=== PATIENT | female | born 1995 | race Caucasian/White ===

== ENCOUNTER 2019-10-13 07:00 | Outpatient (CLI) | payer OTHER ==
[2019-10-13 21:21] LABS: TRICHOMONAS VAGINALIS DNA NEGATIVE (NEGATIVE)
== END 2019-10-13 23:59 | disposition home or self-care (01) ==
LOC: LAB.R 07:00
PROVIDERS: ATTEND Obstetrics & Gynecology
DX: Z36.85 Encounter for antenatal screening for Streptococcus B (principal)
CPT/HCPCS: 87491; 87591; 87661; 87797

== ENCOUNTER 2019-11-04 00:55 | Inpatient (IN) | payer OTHER ==
[2019-11-04] MEDS ORDERED: LACTATED RINGERS 1,000 ML IV ONE (01:47)
[2019-11-04] MEDS ORDERED: fentaNYL 100 MCG/2 ML VIAL IVP PRN (02:19)
[2019-11-04] MEDS ORDERED: ONDANSETRON 4 MG/2 ML VIAL IVP PRN ×2 (02:19→04:45)
[2019-11-04] MEDS ORDERED: SODIUM CHLORIDE FLUSH 0.9% 10 ML SYRINGE IVP PRN (02:19)
--- NOTE | 2019-11-04 02:27 | HISTORY & PHYSICAL EXAMINATION ---
Admit History - Visit Reason Visit Reason: Contractions (24yo GBS neg O+ at 39 4/7 weeks by LMP c/w first trimester US presents with contractions for the past few hours. No bleeding or leak of fluid, normal activity. No n/v/f/c or dysuria.) - : 2 Parity: 1 Premature: 0 Ectopic: 0 : 0 Care: positive: [facility] Risk/History: positive: Pre-eclampsia, Other (Macrosomia, clavicle fracture during delivery) Complications This : positive: None Smoking Status: Never smoker - Mother's Labs Mother's Blood Type: positive: O Mother's RH: positive: Positive GBS: positive: Group B Step Negative Rubella Status: positive: Immune (HIV/RPR/HepB, C/neg GC/chlam neg Varicela immune PAP nml Glucola 131 Given Tdap) Meds/Allgy - Home Medications Home Medications: Ambulatory Orders Medication Instructions Recorded Confirmed Vit,Calc76/Iron/Folic 1 tab PO DAILY 11/04/19 11/04/19 [Pnv 29-1 Tablet] - Allergies Allergies/Adverse Reactions: Allergies Allergy/AdvReac Type Severity Reaction Status Date / Time No Known Drug Allergies Allergy Verified 11/04/19 01:24 Review of Systems - All Other Systems All Other Systems: reports: Other (As noted above) Physical - Abdominal Exam Vital Signs: Temp Pulse Resp BP Pulse Ox 98.2 F 75 18 125/87 H 100 11/04/19 01:14 11/04/19 01:14 11/04/19 01:14 11/04/19 01:14 11/04/19 01:14 Contraction Frequency (min/apart): q3-4 Contraction Intensity: positive: Mild to moderate Uterine Resting Tone: positive: Soft - Monitoring Strip Review: positive: Category I - Presentation Presentation: positive: Vertex (By bedside scan) - Vaginal Exam Membranes: positive: Membranes intact Dilation (in cm): 4cm per RN exam Effacement (%): 90% Station: positive: -1 Cervical Position: positive: Midposition Plan for Labor - Plan For Labor Plan for Labor: 24yo at 39 4/7 weeks presents in prodromal labor. GBS neg, O+ so far uncomplicated. H/O IOL secondary to preeclampsia, macrosomic baby (4167gm) with clavicle fx at delivery. She feels this baby is smaller. EFW 3800gm Planning epidural Check CBC, T&S Expect Exam - Exam Vital Signs: Vital Signs (72 hours) 11/04/19 01:14 Temperature 98.2 F Heart Rate [ 75 Monitoring electrodes] Respiratory 18 Rate Blood Pressure 125/87 H [Left Brachial artery] O2 Saturation 100 General: Alert, Oriented x3, Cooperative Lungs: Clear to auscultation Cardiovascular: Regular rate (3/6 murmur along LSB) Abdomen: Soft (Gravid S=D), No tenderness Skin: No rashes Neurological: Normal gait Psych/Mental Status: Mental status NL
[2019-11-04] MEDS ORDERED: OXYTOCIN/SODIUM CHLORIDE 500 ML IV SCH (03:00)
[2019-11-04 03:14] LABS: BASOPHILS % (AUTO) 0.3 %; EOSINOPHILS # (AUTO) 0.3 10^3/uL (0.0-0.7); EOSINOPHILS % (AUTO) 1.9 %; HGB - HEMOGLOBIN 13.4 g/dL (12.0-16.0); LYMPHOCYTES # (AUTO) 2.9 10^3/uL (1.5-3.5); LYMPHOCYTES % (AUTO) 18.4 %; MEAN CORPUSCULAR HEMOGLOBIN 28.3 pg (27.0-31.0); MEAN CORPUSCULAR HGB CONC 32.9 g/dL (32.0-36.0); MONOCYTES # (AUTO) 0.9 10^3/uL (0.0-1.0); NEUTROPHILS # (AUTO) 11.3 10^3/uL (1.5-6.6); NEUTROPHILS % (AUTO) 72.6 %; PLT - PLATELET COUNT 233 10^3/uL (130-450); RED BLOOD COUNT 4.73 10^6/uL (4.20-5.40); RED CELL DISTRIBUTION WIDTH 12.7 % (12.0-15.0); WHITE BLOOD COUNT 15.6 x10^3/uL (4.8-10.8)
[2019-11-04] MEDS ORDERED: ROPIVACAINE 0.2% 200 MG/100 ML BAG EP ONE (03:27)
[2019-11-04] MEDS: LACTATED RINGERS 1,000 ML IV SCH ×2 (03:58→07:14)
[2019-11-04] MEDS ORDERED: LACTATED RINGERS 500 ML IV ONE (04:45)
[2019-11-04] MEDS ORDERED: ePHEDrine 50 MG/ML VIAL IVP PRN (04:45)
[2019-11-04] MEDS ORDERED: diphenhydrAMINE INJ 50 MG/ML VIAL IVP PRN (04:45)
[2019-11-04] MEDS ORDERED: METOCLOPRAMIDE 10 MG/2 ML VIAL IVP PRN (04:45)
[2019-11-04] MEDS ORDERED: ROPIVACAINE 0.2% 200 MG/100 ML BAG EP PRN (04:45)
[2019-11-04] MEDS ORDERED: NALBUPHINE 10 MG/ML AMP IVP PRN (04:45)
[2019-11-04] MEDS ORDERED: NALOXONE 0.4 MG/ML VIAL IVP PRN (04:45)
--- NOTE | 2019-11-04 04:45 | ANESTHESIA ---
Pre-Anesthesia VS, & Labs - Diagnosis labor - Procedure labor epidural Vital Signs: Temp Pulse Resp BP Pulse Ox 36.8 C 94 18 112/70 100 11/04/19 01:14 11/04/19 02:42 11/04/19 02:42 11/04/19 02:42 11/04/19 02:42 Height 5 ft 1 in Weight (kg) 63.503 kg - Is Patient ?: Yes - Lab Results Current Lab Results: Laboratory Tests 11/04/19 03:30: Blood Type O POSITIVE, Antibody Screen NEGATIVE 11/04/19 02:55: Blood Type Recheck O POSITIVE 11/04/19 02:55: WBC 15.6 H, RBC 4.73, Hgb 13.4, Hct 40.7, MCV 86.0, MCH 28.3, MCHC 32.9, RDW 12.7, Plt Count 233, MPV 12.0 H, Neut # (Auto) 11.3 H, Lymph # (Auto) 2.9, [place] # (Auto) 0.9, Eos # (Auto) 0.3, Baso # (Auto) 0.0, Absolute Nucleated RBC 0.00, Nucleated RBC % 0.0 Fish Bones: 11/04/19 02:55 Home Medications and Allergies Home Medications: Ambulatory Orders Vit,Calc76/Iron/Folic [Pnv 29-1 Tablet] 1 tab PO DAILY 11/04/19 Active Medications Acetaminophen (Tylenol) 650 mg PO Q6H PRN PRN Reason: PAIN Fentanyl (Fentanyl) 50 mcg IVP Q1H PRN PRN Reason: PAIN Lactated Ringer's (Lr) 1,000 mls @ 250 mls/hr IV .Q4H RASHID Last Admin: 11/04/19 03:58 Dose: 250 mls/hr Oxytocin/Sodium Chloride (Pitocin/Sodium Chloride) 500 mls @ 1 mls/hr IV TITR RASHID; Protocol Ondansetron HCl (Zofran Inj) 4 mg IVP Q4H PRN PRN Reason: Nausea / Vomiting Sodium Chloride (Normal Saline Flush 0.9%) 10 ml IVP PRN PRN PRN Reason: NEEDED PER PROVIDER ORDERS Last Admin: 11/04/19 03:31 Dose: 10 ml Sodium Chloride (Normal Saline Flush 0.9%) 10 ml IVP 0100,0900,1700 [facility] Vit,Calc76/Iron/Folic [Pnv 29-1 Tablet] 1 tab PO DAILY 11/04/19 Allergies/Adverse Reactions: Allergies Allergy/AdvReac Type Severity Reaction Status Date / Time No Known Drug Allergies Allergy Verified 11/04/19 01:24 Anes History & Medical History - Anesthetic History Anesthesia Complications: reports: No previous complications Family history of Anesthesia Complications: Denies Family history of Malignant Hyperthermia: Denies - Medical History Cardiovascular: reports: None Pulmonary: reports: None Smoking Status: Never smoker - Obstetrical History : 2 Parity: 1 Events: positive: Pre-eclampsia, Other (Macrosomia, clavicle fracture during delivery) Complications: positive: None Exam General: Alert, Oriented x3, Cooperative Dental: WNL Mouth Opening: Greater than 4 Fingerbreadths Neck Mobility: Normal Mallampati classification: II Thyromental Distance: 4-6 cm Respiratory: Lungs clear Cardiovascular: Regular rate Plan Anesthesia Type: Epidural Consent for Procedure(s) Verified and Reviewed: Yes Code Status: Attempt Resuscitation ASA classification: 2-Mild systemic disease Is this case an emergency?: No
--- NOTE | 2019-11-04 06:42 | PROVIDER PROGRESS NOTE ---
Subjective - Prog Note Date Prog Note Date: 11/04/19 Prog Note Time: 06:40 - Subjective Subjective: Comfortable with epidural. VSS afeb Category 1 tracing Contractions q2-4 VE/ BBOW>AROM clear. Rim of cervix/+1 Str cath for 100cc concentrated urine. Doing well. Will give bolus Expect Objective - Vital Signs/Intake & Output Vital Signs: Vital Signs x48h Temp Pulse Resp BP BP Pulse Ox 11/04/19 02:42 94 18 112/70 100 11/04/19 01:14 98.2 F 75 18 125/87 H 100 Intake & Output: Intake & Output 11/01/19 11/02/19 11/03/19 11/04/19 23:59 23:59 23:59 23:59 Intake Total 1000 Balance 1000 - Lab Results Fish Bones: 11/04/19 02:55 Other Labs: Lab Results x24hrs 11/04/19 11/04/19 11/04/19 Range/Units 03:30 02:55 02:55 WBC 15.6 H (4.8-10.8) x10^3/uL RBC 4.73 (4.20-5.40) 10^6/uL Hgb 13.4 (12.0-16.0) g/dL Hct 40.7 (37.0-47.0) % MCV 86.0 (81.0-99.0) fL MCH 28.3 (27.0-31.0) pg MCHC 32.9 (32.0-36.0) g/dL RDW 12.7 (12.0-15.0) % Plt Count 233 (130-450) 10^3/uL MPV 12.0 H (7.9-10.8) fL Neut # (Auto) 11.3 H (1.5-6.6) 10^3/uL Lymph # (Auto) 2.9 (1.5-3.5) 10^3/uL [place] # (Auto) 0.9 (0.0-1.0) 10^3/uL Eos # (Auto) 0.3 (0.0-0.7) 10^3/uL Baso # (Auto) 0.0 (0.0-0.1) 10^3/uL Absolute Nucleated RBC 0.00 x10^3/uL Nucleated RBC % 0.0 /100WBC Blood Type O POSITIVE Blood Type Recheck O POSITIVE Antibody Screen NEGATIVE
[2019-11-04] MEDS ORDERED: LIDOCAINE-MPF 1% 30 ML VIAL ONE (06:57)
[2019-11-04] MEDS ORDERED: OXYTOCIN/SODIUM CHLORIDE 500 ML IV PRN (07:02)
[2019-11-04] MEDS ORDERED: HYDROcod/ACETAM 5/325 MG TABLET PO PRN (07:34)
[2019-11-04] MEDS ORDERED: HYDROCORTISONE 1% CREAM 28 GM TUBE PR PRN (07:34)
[2019-11-04] MEDS ORDERED: WITCH HAZEL/GLYCERIN 1 PAD TOP PRN (07:34)
--- NOTE | 2019-11-04 07:40 | DELIVERY NOTE ---
Delivery Note - Labor Labor: positive: Spontaneous - Delivery Method Delivery Method: positive: Spontaneous vaginal delivery - Presentation Presentation: positive: Vertex, RONN - right occiput anterior - Nuchal Cord Nuchal Cord: positive: Present (Loose x1 reduced) - Anesthetic Anesthetic Type: - Amniotic Fluid Description Amniotic Fluid Description: positive: Clear - Laceration Laceration: positive: 1st degree - Suture Suture Type: positive: Vicryl Suture Size: positive: 3-0 - Delivery Outcome Delivery Outcome: positive: Livebirth - : positive: Placed in direct skin contact with mother, Suctioned, Stimulated, Warmed [place] sex: positive: Female - Cord Cord: positive: 3 vessels - Placenta Placenta: positive: Intact, Spontaneous - Estimated Blood Loss Estimated Blood Loss (in cc): 250 - Post Delivery Events Post Delivery Events: positive: No post delivery events - Delivery Comments (Free Text/Narrative) Delivery Comments (Free Text/Narrative): of 3863gm female infant apgars 7/9 at 0701 from RONN. Cry with stimulation. Nuchal cord x1 reduced Placenta delivered intact with traction. Intact with normally inserted 3 vessel cord. Intact cervix, rectum, perineum. Small first degree laceration repaired with 3-0 vicryl rapide. EBL 250cc. Counts correct. I performed the entire procedure.
[2019-11-04] MEDS: ACETAMINOPHEN 325 MG TABLET PO PRN ×2 (08:06→23:38)
[2019-11-04] MEDS: IBUPROFEN 600 MG TABLET PO PRN (08:46)
[2019-11-04] MEDS ORDERED: SODIUM CHLORIDE FLUSH 0.9% 10 ML SYRINGE IVP SCH (09:00)
--- NOTE | 2019-11-04 12:05 | PROVIDER PROGRESS NOTE ---
Subjective - Prog Note Date Prog Note Date: 11/04/19 Prog Note Time: 12:04 - Subjective Subjective: Feeling well . Normal lochia. Ambulating, voiding, jamey reg diet. VSS afeb Abd soft, non-tender. Fundus firm below umbilicus. A/P Stable. Continue routine care. Expect DC home tomorrow. Objective - Vital Signs/Intake & Output Vital Signs: Vital Signs x48h Temp 11/04/19 09:19 97.7 F Intake & Output: Intake & Output 11/01/19 11/02/19 11/03/19 11/04/19 23:59 23:59 23:59 23:59 Intake Total 1816.667 Output Total 600 Balance 1216.667 - Lab Results Fish Bones: 11/04/19 02:55 Other Labs: Lab Results x24hrs 11/04/19 11/04/19 11/04/19 Range/Units 03:30 02:55 02:55 WBC 15.6 H (4.8-10.8) x10^3/uL RBC 4.73 (4.20-5.40) 10^6/uL Hgb 13.4 (12.0-16.0) g/dL Hct 40.7 (37.0-47.0) % MCV 86.0 (81.0-99.0) fL MCH 28.3 (27.0-31.0) pg MCHC 32.9 (32.0-36.0) g/dL RDW 12.7 (12.0-15.0) % Plt Count 233 (130-450) 10^3/uL MPV 12.0 H (7.9-10.8) fL Neut # (Auto) 11.3 H (1.5-6.6) 10^3/uL Lymph # (Auto) 2.9 (1.5-3.5) 10^3/uL [place] # (Auto) 0.9 (0.0-1.0) 10^3/uL Eos # (Auto) 0.3 (0.0-0.7) 10^3/uL Baso # (Auto) 0.0 (0.0-0.1) 10^3/uL Absolute Nucleated RBC 0.00 x10^3/uL Nucleated RBC % 0.0 /100WBC Blood Type O POSITIVE Blood Type Recheck O POSITIVE Antibody Screen NEGATIVE
--- NOTE | 2019-11-05 08:07 | PROVIDER PROGRESS NOTE ---
Subjective - Prog Note Date Prog Note Date: 11/05/19 Prog Note Time: 08:05 - Subjective Subjective: PPD 1 Feeling well. Ambulating, jamey reg diet. Minimal lochia. going well. Planning IUD; likely Mirena, in 6 weeks. VSS afeb Abd soft, non-tender. Fundus firm at umbilicus A/P Stable. Continue routine care. Expect DC home today. Objective - Vital Signs/Intake & Output Vital Signs: Vital Signs x48h Pulse Resp BP Pulse Ox 11/05/19 02:00 96 16 118/75 98 Intake & Output: Intake & Output 11/02/19 11/03/19 11/04/19 11/05/19 23:59 23:59 23:59 23:59 Intake Total 1816.667 Output Total 600 Balance 1216.667 - Lab Results Fish Bones: 11/04/19 02:55
--- NOTE | 2019-11-05 08:10 | DISCHARGE SUMMARY ---
"Discharge Summary Admit Date: 11/04/19 Discharge Date: 11/05/19 Discharging Provider: Nikki Marques MD Code Status: Attempt Resuscitation Condition at Discharge: Good Discharge Disposition: 01 Home, Self Care - DIAGNOSES Admission Diagnoses: at 39 4/7 weeks Early labor - HPI History of Present Illness: 24yo now P2 GBS neg O+ at 39 4/7 weeks by LMP c/w first trimester US presented with contractions for the preceding few hours. No bleeding or leak of fluid, normal activity. No n/v/f/c or dysuria. - CONSULTS | PROCEDURES Procedures: Repair first degree laceration - HOSPITAL COURSE Hospital Course: Pt progressed in labor, an epidural was placed and she was deliverred of a 3863gm female infant apgars 7/9 on 11/03. A small first degree laceration was repaired. EBL 250cc. Her course was uncomplicated and she was DC'd home on PPD 1. She is planning Mirena in 6 weeks for contraception. - ALLERGIES Allergies/Adverse Reactions: Allergies Allergy/AdvReac Type Severity Reaction Status Date / Time No Known Drug Allergies Allergy Verified 11/04/19 01:24 - MEDICATIONS Home Medications: Ambulatory Orders Medication Instructions Recorded Confirmed Vit,Calc76/Iron/Folic 1 tab PO DAILY 11/04/19 11/04/19 [Pnv 29-1 Tablet] - PHYSICAL EXAM AT DISCHARGE General Appearance: positive: No acute distress, Alert Respiratory: positive: No respiratory distress Abdomen: positive: Non-tender, No distention (Fundus firm at umbilicus) Extremities: positive: No pedal edema - LABS Result Diagrams: 11/04/19 02:55 - FOLLOW UP Follow Up[facility]."
--- NOTE | 2019-11-05 08:18 | Discharge Plan ---
Discharge Plan Problem Reviewed?: Yes Disposition: Home, Self Care Condition: Good Diet: Regular Activity Restrictions: Pelvic rest Shower Restrictions: No Driving Restrictions: No Weight Bearing: Full Weight No Smoking: If you smoke, Please STOP! Call for help.
[2019-11-05] MEDS: IBUPROFEN 600 MG TABLET PO PRN (08:32)
[2019-11-05] MEDS: ACETAMINOPHEN 325 MG TABLET PO PRN (08:32)
[2019-11-05 09:14] VITALS: BP 109/63
--- NOTE | 2019-11-05 12:40 | Labor Flowsheet ---
Labor Flowsheet Datetime Report Generated by CPN: 11/05/2019 12:40 Datetime: 11/05/2019 08:34 VITAL SIGNS NBP Sys/Lilli/Mean (mmHg): 109 : 63 : 73 Pulse: 72 LaborFlag: Labor Datetime: 11/04/2019 15:59 SpO2 (%): 100 Datetime: 11/04/2019 08:08 Membranes Ruptured Date/Time: 11/04/2019 06:29 Datetime: 11/04/2019 06:58 UTERINE ACTIVITY Monitor Mode: External Frequency (min): 2-3 Quality: Strong Duration (sec): 80-120 Pattern: Normal: <= 5 Contractions in 10 Minutes Resting Tone (Palpate): Relaxed ASSESSMENT A Monitor Mode: External US FHR Baseline Rate : 145 Variability: Moderate 6-25 bpm Accelerations: 15X15 Decelerations: Variable Category: Category II Datetime: 11/04/2019 06:35 I/O Interventions: Straight Cath (ml) @ 100 (Annotations: Performed by Dr. Marques) Datetime: 11/04/2019 06:29 Membrane Status: Ruptured Membranes Rupture Method: Artificial Amniotic Fluid Color: Clear Amniotic Fluid Amount: Moderate Amniotic Fluid Odor: Normal Membrane Comments: AROM performed by Dr. Marques Datetime: 11/04/2019 06:25 Provider Reviewed Strip: Yes COMMUNICATION Communication: Provider at Bedside Provider Notified (Name): Dr. Erber Notification Reason: Status Update; Pain Datetime: 11/04/2019 06:20 PATIENT CARE Patient Position/Activity: Right Lateral (Annotations: peanut ball in place) Datetime: 11/04/2019 06:00 Actions for Decelerations: Side to Side Datetime: 11/04/2019 05:59 Patient Care Comments: pt awake. c/o pressure Datetime: 11/04/2019 05:15 Contraction Comments: pt sleeping through them Datetime: 11/04/2019 04:15 Epidural Procedure: Test Dose Datetime: 11/04/2019 03:57 PROCEDURE TIME OUT Procedure Verify: Correct Patient Identity ANESTHESIA Anesthesia Plans: Epidural Anesthesia Comments: anesthesia here Datetime: 11/04/2019 03:20 Communication Comments: notified of pt request for epidural Datetime: 11/04/2019 03:19 VAGINAL EXAM Dilatation (cm): 6.0 Effacement (%): 100 Station: 0 Exam by: ferny RN Vaginal Bleeding: None Cervix, Consistency: Soft Cervix, Position: Anterior Vaginal Exam Comments: pt requesting an exam to decide on epidural.
== END 2019-11-05 09:00 | disposition home or self-care (01) | DRG 807 ==
LOC: WFO 00:55 → FBP 00:57 → WFO 02:18 → FBP 02:19
PROVIDERS: ADMIT Obstetrics & Gynecology; ATTEND Obstetrics & Gynecology
PROC: 10E0XZZ Delivery of Products of Conception, External Approach (ICD-10-PCS; principal; 2019-11-04)
PROC: 0HQ9XZZ Repair Perineum Skin, External Approach (ICD-10-PCS; 2019-11-04)
DX: O70.0 First degree perineal laceration during delivery (principal); Z37.0 Single live birth; O69.81X0 Labor and delivery complicated by cord around neck, without compression, not applicable or unspecified; Z3A.39 39 weeks gestation of pregnancy; Z87.59 Personal history of other complications of pregnancy, childbirth and the puerperium
CPT/HCPCS: 36415; 85025; 86850; 86900; 86901; 99212; A9270; J7120